=== PATIENT | female | born 2005 | race Two or more races ===

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

== ENCOUNTER 2024-07-16 10:27 | Emergency (ER) | payer MEDICAID ==
[~2024-07-16 10:27] MED LIST changes: +IBUP-1957 PO
== END 2024-07-16 10:51 | disposition left against medical advice (07) ==
LOC: ER 10:29
DX: R05.9 Cough, unspecified (principal); R07.9 Chest pain, unspecified; Z53.21 Procedure and treatment not carried out due to patient leaving prior to being seen by health care provider